=== PATIENT | male | born 1945 | race Caucasian/White ===

== ENCOUNTER 2024-03-12 13:32 | Emergency (ER) | payer OTHER, SELFPAY ==
[2024-03-12] VITALS (8 sets, daily range): BP systolic 112–168; BP diastolic 68–103; PULSE 75–81; BMI 24.6
--- NOTE | 2024-03-12 14:12 | ED.GENMED ---
History of Present Illness
General
Chief Complaint: Breathing Problem
Source: patient
Time Seen by Provider: 03/12/24 13:58
History of Present Illness
History of Present Illness:
78-year-old male with past medical history of hypertension, hyperlipidemia, GERD, Parkinson's disease presenting to the emergency department for evaluation of lightheadedness/dizziness and exertional dyspnea that started last week, gradually
worsening and persisted throughout the weekend prompting him to come to the ER today. Patient states that he has not had any similar issues like this in the past. Denies any chest pain, palpitations, diaphoresis, lower extremity edema and states
presently he is asymptomatic but symptoms seem to worsen while he is moving. Patient states he is not sure if this is related to some of his medications. He does note that due to flares of and worsening of his Parkinson's he had to postpone a
cardiac stress test and echocardiogram which she was scheduled to undergo in the recent past and states that this was more just for routine monitoring as he has not had one in about 5 to 6 years.
Past History
Past History
ED Past Medical History: Arrthythmia (Chronic PVC's), GERD (Aguero's esophagus), HTN, Hypercholesterolemia and Other (PVCs, BPH, Parkinson's disease)
ED Past Surgical History: Urological (TURP)
Social History
Tobacco: Former smoker
Alcohol: Occasional
Drug: None
Personal:
Living: alone
Employment: Retired
Family History
Family History: CAD; Negative Early CAD
Review of Systems
Review of Systems
All Other Systems: ROS reviewed and negative except as documented in HPI and ROS
Phy Exam
Physical Exam
Physical Exam:
GENERAL: Alert , in no apparent distress
EYE: conjunctiva clear
NECK: Supple
ENT: o/p clr, mmm.
CARDIAC: Regular rate and rhythm
LUNGS: Clear breath sounds bilaterally, no acute respiratory distress, no wheezes/rales/rhonchi
NEUROLOGICAL: Alert and oriented, resting tremor noted
SKIN: Warm and dry, skin intact.
MUSCULOSKELETAL: well perfused. no edema
PSYCH: Normal and appropriate interaction.
Scores
Heart Failure Risk
Heart Failure Risk Score: Not Applicable
Heart Score for Chest Pain Patients
STEMI patient?: Not applicable
Withdrawal Assessment of Alcohol
Withdrawal Assessment Completed?: Not applicable
Course
Orders/Labs/Results
Orders:
Orders
03/12/24 13:33
Electrocardiogram (*1) Urgent
Reason for Study: Shortness of Breath
EKG- Treatment ONCE
03/12/24 13:58
Orthostatic VS- Treatment ONCE
03/12/24 14:07
Complete Blood Count/With Diff Urgent
Comprehensive Metabolic Panel Urgent
NT-proBNP Urgent
Troponin I Urgent
03/12/24 14:43
CR Chest - 2 Views Urgent
Comment:
Reason For Exam: exertional dyspnea
Abnormal Lab Results
03/12/24
14:07
Monocytes % 9.5 H %
(1.7-9.3)
Glucose 135 H mg/dl
(70-99)
Total Bilirubin 1.4 H mg/dl
(0.2-1.3)
Total Protein 6.1 L g/dl
(6.3-8.2)
03/12/24 14:07
03/12/24 14:07
Vital Signs
Initial and Last Documented VS:
Initial Vital Signs
Temp Pulse Resp BP Pulse Ox
97.8 F 84 16 143/80 97
03/12/24 13:34 03/12/24 13:34 03/12/24 13:34 03/12/24 13:34 03/12/24 13:34
Last Documented Vital Signs
Temp Pulse Resp BP Pulse Ox
97.8 F 82 20 168/103 97
03/12/24 13:34 03/12/24 15:11 03/12/24 15:11 03/12/24 16:24 03/12/24 16:25
MDM/Problems Addressed
Differential Diagnosis Includes:
medication interaction, orthostasis, CHF, valvular dysfunction, atypical ACS presentation
MDM/Problems Addressed:
78-year-old male presenting to the ER for evaluation of intermittent lightheadedness/dizziness and exertional shortness of breath that has been ongoing for the last week or so. Patient was scheduled to have nuclear stress test done but due to some
issues with his Parkinson's had to unfortunately canceled this. Patient is currently asymptomatic and in no acute distress. Hemodynamically stable. Will check labs, EKG and chest x-ray. Disposition pending.
*Radiology
Radiology exam reviewed: preliminary read by ED provider (Normal chest x-ray)
*Pulse Oximetry
Patient hypoxic: no
*EKG
Interpreted by ED Provider?: Yes
Rate: normal
Rhythm: sinus
[place]: normal axis
Ischemia: no ischemia
*[employer]graduate Intern[employer] Interpretation
Rate: normal
Rhythm: sinus
*Critical Care Note
Total Time (30-74mins, 75-104mins- exclusive of procedures): Not Applicable
Data Reviewed
Review of Other/Old Records Reveals: Labs and Records
Patient Management
Discussion with other providers: PCP
Escalation/DeEscalation of care consider admission/obs:
Patient's workup unremarkable. He remains asymptomatic and well to go home. We discussed risk first benefit of admission and ultimately patient feels comfortable being discharged home. Chest pain hotline was notified to help expedite outpatient
cardiac workup. I also notified patient's primary care provider who will help follow-up with the patient as well
ED Attending Note
-
Portions of this chart may have been created with voice recognition software.� Occasional wrong word or��sound alike� substitutions may have occurred due to the inherent limitations of voice recognition software.
Discharge Plan
Departure
Patient Disposition: Home (Routine Discharge)
Date of Disposition: 03/12/24
Time of Disposition: 16:17
Patient with high blood pressure during this ER visit?: No
Discharge Problem:
Shortness of breath, Episodic lightheadedness
Instructions: Chest Pain DCA Follow Up
Prescriptions:
No Action
amlodipine 2.5 mg tablet
2.5 mg PO DAILY@1400
calcium carbonate 500 mg calcium (1,250 mg) Tablet
500 mg PO DAILY@1200
esomeprazole magnesium 40 mg capsule,delayed release(DR/EC)
40 mg PO DAILY PRN (Reason: heartburn)
pramipexole 0.25 mg tablet
0.25 mg PO TID
rosuvastatin 5 mg tablet
5 mg PO DAILY@1400
cholecalciferol (vitamin D3) [Vitamin D3] 25 mcg (1,000 unit) Tablet
25 mcg PO DAILY@1200
aspirin 81 mg tablet,chewable
81 mg PO .FEWTIMESAWEEK
Referrals:
Noah Marcelino DO [Family Provider] -
Interventions
Interventions:
*Risk Screen - Suicide Last Done: 03/12/24 13:35
*General Assessment Last Done: 03/12/24 16:30
*Neglect/Abuse Screening Last Done: 03/12/24 13:35
ED- Fall Risk Assessment Last Done: 03/12/24 13:57
*ED COVID-19 Vaccine History Last Done: 03/12/24 13:35
*Nursing Disposition Last Done: 03/12/24 16:30
ED- Cardiac Assessment Last Done: 03/12/24 13:58
ED- Pulmonary Assessment Last Done: 03/12/24 13:59
Discharge Date and Time
Discharge Date/Time: 03/12/24 16:35
Print Language: KOREAN
[2024-03-12 14:15] LABS: % Basophils 0.5 % (0-2); % Eosinophils 0.9 % (0-6); % Immature Granulocytes 0.2 % (0-0.5); % Lymphocytes 33.3 % (20.5-51.1); % Monocytes 9.5 % (1.7-9.3); % Neutrophils 55.6 % (42.2-75.2); Absolute Eosinophils 0.1 10^3/uL (0-0.7); Absolute Lymphocytes 2.2 10^3/uL (1.2-3.4); Absolute Monocytes 0.6 10^3/uL (0.1-0.6); Absolute Neutrophils 3.7 10^3/uL (1.4-6.5); Hematocrit 41.9 % (39.0-52.0); Hemoglobin 14.5 g/dL (13.0-18.0); Mean Corp Hgb Conc. 34.6 g/dL (33.0-37.0); Mean Corpuscular Hgb 30.7 pg (27.0-31.0); Mean Corpuscular Volume 88.6 fL (80.0-94.0); Mean Platelet Volume 8.1 fL (7.4-10.4); Nucleated Red Blood Cells % 0 % (-); Platelet Count 236 10^3/uL (130-400); Red Blood Cell Count 4.73 10^6/uL (4.70-6.10); Red Cell Dist. Width 12.3 % (11.5-14.5); White Blood Cell Count 6.6 10^3/uL (4.8-10.8)
[2024-03-12 14:29] LABS: ALT (SGPT) < 10 U/L (0-50); AST (SGOT) 23 U/L (17-59); Alkaline Phosphatase 50 U/L (38-126); Blood Urea Nitrogen 14 mg/dl (9-20); Calcium 9.1 mg/dl (8.4-10.2); Carbon Dioxide 27 mmol/L (22-30); Chloride 101 mmol/L (98-107); Estimated Creatinine Clearance 64 ml/min; Glucose 135 mg/dl (70-99); Potassium 4.1 mmol/L (3.5-5.1); Sodium 137 mmol/L (135-145); Total Bilirubin 1.4 mg/dl (0.2-1.3); Total Protein 6.1 g/dl (6.3-8.2); eGFR > 60.00
[2024-03-12 14:41] LABS: NT-proBNP < 20.0 pg/ml; Troponin I < 0.012 ng/ml
== END 2024-03-12 16:35 | disposition home or self-care (01) ==
LOC: EMR 13:32
PROVIDERS: Physician Assistant Medical; EMERGENCY PHYSICIAN Emergency Medicine; FAMILY PHYSICIAN Family Medicine
DX: R06.02 Shortness of breath (principal); R42 Dizziness and giddiness; I10 Essential (primary) hypertension; E78.00 Pure hypercholesterolemia, unspecified; K21.9 Gastro-esophageal reflux disease without esophagitis; G20.A1 Parkinson's disease without dyskinesia, without mention of fluctuations; Z87.891 Personal history of nicotine dependence
CPT/HCPCS: 99285; 71046; 80053; 83880; 84484; 85025; 93005

== ENCOUNTER → 2024-03-28 07:30 | Outpatient (REF) | payer OTHER, SELFPAY | LOC: DHCBC/DCA 07:30 | PROVIDERS: ATTENDING PHYSICIAN Nurse Practitioner; FAMILY PHYSICIAN Family Medicine | DX: R06.09 Other forms of dyspnea (principal); I10 Essential (primary) hypertension; R07.89 Other chest pain; E78.2 Mixed hyperlipidemia | CPT/HCPCS: 78452; 93017; A9500; J2785 ==

== ENCOUNTER 2024-10-25 06:20 | Day surgery (SDC) | payer OTHER, SELFPAY | END 2024-10-25 16:17 | disposition home or self-care (01) | LOC: GI 06:20 | PROVIDERS: ATTENDING PHYSICIAN Specialist | DX: Z12.11 Encounter for screening for malignant neoplasm of colon (principal); D12.3 Benign neoplasm of transverse colon; K59.00 Constipation, unspecified; Z86.0101 Personal history of adenomatous and serrated colon polyps | CPT/HCPCS: 45385; 88305 ==